=== PATIENT | male | born 2000 | race Caucasian/White ===

== ENCOUNTER 2024-05-15 08:46 | Day surgery (SDC) | payer MEDICAID ==
[~2024-05-15] VITALS: Ht 170.2 cm; Wt 65.9 kg
[~2024-05-15 08:46] MED LIST: CHONDR SULF A SOD/HYALURONATE 1.05 ML KIT IO ONE; FentaNYL CITRATE PF 100 MCG/2 ML VIAL ONE; HYALURONATE SOD 8.5MG/0.85ML 10 MG/ML SYRINGE IO ONE; KETOROLAC TROMETHAMINE 0.5% 5 ML OPHTHALMIC SOLUTION ONE; MIDAZOLAM HCL 2 MG/2 ML VIAL ONE; MOXIFLOXACIN HCL 0.5% 3 ML OPHTHALMIC SOLUTION ONE; PHENYLEPHRINE HCL 2.5% 2 ML OPHTHALMIC SOLUTION ONE; RINGERS SOLUTION,LACTATED 500 ML IV ONE; TROPICAMIDE 1% 2 ML OPHTHALMIC SOLUTION ONE
[2024-05-15] MEDS: PHENYLEPHRINE HCL 2.5% 2 ML OPHTHALMIC SOLUTION OS SCH (09:51)
[2024-05-15] MEDS: KETOROLAC TROMETHAMINE 0.5% 5 ML OPHTHALMIC SOLUTION OS SCH (09:51)
[2024-05-15] MEDS: TROPICAMIDE 1% 2 ML OPHTHALMIC SOLUTION OS SCH (09:51)
[2024-05-15] MEDS: MOXIFLOXACIN HCL 0.5% 3 ML OPHTHALMIC SOLUTION OS SCH (09:52)
[2024-05-15] MEDS: RINGERS SOLUTION,LACTATED 500 ML IV ONE (10:04)
[2024-05-15] MEDS: BALANCED SALT 15 ML OPHTHALMIC IRRIG.SOLN ONE (12:46)
[2024-05-15] MEDS: EPINEPHrine 1:1,000 [1 MG/ML] VIAL ONE (12:47)
[2024-05-15] MEDS: POVIDONE-IODINE 5% 30 ML OPHTHALMIC SOLUTION ONE (12:50)
[2024-05-15] MEDS: TETRACAINE HCL/PF 0.5% 4 ML OPHTHALMIC SOLUTION ONE (12:50)
[2024-05-15] MEDS: LIDOCAINE/PF 1% 2 ML VIAL ONE (14:19)
== END 2024-05-15 12:00 | disposition home or self-care (01) ==
LOC: SURGERY 08:46
PROVIDERS: ATTEND Ophthalmology
DX: H25.12 Age-related nuclear cataract, left eye (principal); J45.909 Unspecified asthma, uncomplicated; F12.90 Cannabis use, unspecified, uncomplicated
CPT/HCPCS: 66982; J7321; J0171; J3010; J3490; J2250; J7120; V2632